=== PATIENT | female | born 1945 | race Caucasian/White ===

== ENCOUNTER → 2017-10-06 09:02 | Outpatient (CLI) | payer MEDICARE, OTHER, SELFPAY ==
--- NOTE | 2017-10-06 | DI.ECHO.S_ITS ---
[facility] +---------+ : : [address] : : : : [id number] : : : : Phone: [phone]+ Echocardiogram Report + + :Name: DARELL MENDOZA Study Date: 10/06/2017 Height: 67 in : :[facility] Weight: 224 lb : : Gender: Female BSA: 2.1 m2 : :: 1945 Age: 72 yrs BP: 126/66 mmHg: :Reason For Study: Palpitations : : Performed By: Amy Arias : :Referring: YU GUTIÉRREZ : + + Interpretation Summary The left ventricle is normal in size, wall thickness, and systolic function without any focal wall motion abnormalities. The ejection fraction is estimated to be 60-65%. Assessment of diastolic parameters indicates a relaxation abnormality of the left ventricle, consistent with normal filling pressures. Borderline right ventricular enlargement. The right ventricular systolic function is normal. The right ventricular systolic pressure is estimated at 28 mmHg assuming a right atrial pressure of 3 mm Hg. The left atrium is mildly dilated. The right atrium is mildly dilated. There is mild mitral regurgitation. There is mild aortic regurgitation. There is no other significant valvular heart disease. The aortic root is normal size. Procedure: A two-dimensional transthoracic echocardiogram with color flow and Doppler was performed. The study quality was technically adequate. There is no prior echocardiogram noted for this patient. The patient was in normal sinus rhythm during the exam. The patient had occasional PVCs during the exam. Left Ventricle: The left ventricle is normal in size, wall thickness, and systolic function without any focal wall motion abnormalities. The ejection fraction is estimated to be 60-65%. Assessment of diastolic parameters indicates a relaxation abnormality of the left ventricle, consistent with normal filling pressures. Right Ventricle: Borderline right ventricular enlargement. The right ventricular systolic function is normal. Atria: The left atrium is mildly dilated. The right atrium is mildly dilated. The interatrial septum is intact with no evidence for an atrial septal defect. Mitral Valve: The mitral valve is grossly normal. There is mild mitral regurgitation. Aortic Valve: The aortic valve is trileaflet. The aortic valve opens well. There is mild aortic regurgitation. Tricuspid Valve: The tricuspid valve is normal in structure and function. There is trace tricuspid regurgitation. The right ventricular systolic pressure is estimated at 28 mmHg assuming a right atrial pressure of 3 mm Hg. Pulmonic Valve: The pulmonic valve is not well seen, but is grossly normal. There is mild pulmonic regurgitation. There is no other significant valvular heart disease. Great Vessels: The aortic root is normal size. The ascending aorta is at the upper limits of normal in size. The IVC is of normal diameter and collapses greater than 50% with a sniff. This suggests a low right atrial pressure of 3 mm Hg. Pericardium/ Pleura There is no pericardial effusion. There is no pleural effusion. MMode/2D Measurements & Calculations LVIDd: 5.3 cm Ao root diam: 3.5 cm LVIDs: 3.3 cm Aortic Jxn: 2.8 cm FS: 38.9 % asc Aorta Diam: 3.6 cm IVSd: 0.88 cm Ao Arch Diam (Prox Trans): 3.0 cm LVPWd: 0.96 cm LV julien. diameter/BSA (cm/m^2): 2.5 LV sys. diameter/BSA (cm/m^2): 1.5 LA dimension: 4.4 cm RA long axis: 4.8 cm LA A2 area: 25.2 cm2 RA area: 19.2 cm2 LA A4 area: 22.2 cm2 RA vol: 64.9 ml LA length (vol): 5.7 cm RA : 30.6 ml/m2 LA vol: 83.1 ml IVC diam: 1.6 cm LA vol index: 39.2 ml/m2 RVDd major: 5.2 cm RVD1 (basal): 3.6 cm RVD2 (mid): 3.4 cm Doppler Measurements & Calculations Ao V2 max: 147.8 cm/sec AI P1/2t: 459.0 msec Ao V2 mean: 107.0 cm/sec AI dec slope: 247.5 cm/sec2 Ao max P.7 mmHg Ao mean P.0 mmHg Ao V2 VTI: 38.6 cm MV E max tiburcio: 70.4 cm/sec TR max tiburcio: 248.8 cm/sec MV A max tiburcio: 80.4 cm/sec TR max P.8 mmHg MV E/A: 0.88 PA V2 max: 87.6 cm/sec Med Peak E' Tiburcio: 5.1 cm/sec PA V2 mean: 59.5 cm/sec E/E' med: 13.9 PA mean P.6 mmHg Lat Peak E' Tiburcio: 6.6 cm/sec PA Accel Time: 0.13 sec E/E' lat: 10.6 E/e' average: 12.3 MV dec time: 0.28 sec MV P1/2t: 83.0 msec MV P1/2t max tiburcio: 71.0 cm/sec MVA(P1/2t): 2.7 cm2 Reading Physician:SPENCER
== END ==
PROVIDERS: Visit Provider Internal Medicine
DX: I08.0 Rheumatic disorders of both mitral and aortic valves (principal); R00.2 Palpitations
CPT/HCPCS: 93306

== ENCOUNTER → 2018-10-27 09:53 | Outpatient (CLI) | payer MEDICARE, OTHER, SELFPAY ==
[2018-10-27 11:02] LABS: Add Manual Diff / Slide Review NO; Basophils Absolute Auto 100 /uL (0-100); Basophils Percent Auto 1.3 % (0-2); Eosinophils Absolute Auto 100 /uL (0-450); Eosinophils Percent Auto 1.4 % (2-4); Hematocrit 43.4 % (36-46); Hemoglobin 14.2 g/dL (12.0-16.0); Lymphocytes Absolute Auto 1600 /uL (1100-4500); Lymphocytes Percent Auto 38.3 % (25-40); Mean Corpuscular HGB Conc 32.7 % (30-36); Mean Corpuscular Hemoglobin 26.5 PG (26-34); Mean Corpuscular Volume 81.1 fL (80-100); Monocytes Absolute Auto 400 /uL (0-900); Monocytes Percent Auto 9.1 % (3-14); Neutrophils Absolute Auto 2100 /uL (1500-7000); Neutrophils Percent Auto 49.9 % (50-75); Platelet Count 213 X10^3/uL (150-400); Red Blood Cell Count 5.35 X10^6/uL (4.0-5.2); Red Cell Distribution Width 16.8 % (11.6-14.8); White Blood Cell Count 4.2 X10^3/uL (4.5-11.0)
[2018-10-27 11:07] LABS: HEMOLYSIS < 15 (0-50); Iron 43 ug/dL (37-170)
[2018-10-27 11:12] LABS: Alanine Aminotransferase 20 IU/L (9-52); Albumin 4.2 g/dL (3.5-5.0); Albumin Globulin Ratio 1.4 (1.0-2.8); Alkaline Phosphatase 94 U/L (38-126); Aspartate Aminotransferase 26 IU/L (14-36); BUN Creatinine Ratio 28.3 (6-22); Bilirubin Total 0.5 mg/dL (0.2-1.3); Blood Urea Nitrogen 17 mg/dL (7-17); Calcium 9.3 mg/dL (8.4-10.2); Carbon Dioxide 26 mmol/L (22-32); Chloride 105 mmol/L (98-107); Cholesterol 279 mg/dL (140-199); Estimated Glomerular Filt Rate > 60.0 mL/min (>60); Gamma Glutamyl Transpeptidase 15 U/L (12-43); Glucose 118 mg/dL (80-110); HDL Cholesterol 83 mg/dL (40-60); HEMOLYSIS < 15 (0-50); LDL Cholesterol Calculated 178 mg/dL (<100); Sodium 140 mmol/L (137-145); Total Protein 7.2 g/dL (6.3-8.2); Triglycerides 92 mg/dL (35-150)
[2018-10-27 11:16] LABS: Hemoglobin A1C% w Est Avg Glu 6.6 % (4.0-6.0)
[2018-10-27 11:19] LABS: C-Reactive Protein Quant < 0.5 mg/dL (<1.0); Percent Iron Saturation 11 % (15-50); Total Iron Binding Capacity 399 ug/dL (265-497); Transferrin 334 mg/dL (206-381)
[2018-10-27 11:22] LABS: Vitamin D 25 Hydroxy (D3) 39.1 ng/mL (30.0-100.0)
[2018-10-27 11:24] LABS: Free T4, Direct Thyroxine 0.98 ng/dL (0.78-2.19); T4 Total Thyroxine 7.65 ug/dL (5.5-11.0); T7 (Free Thyroxine Index) 2.46 (1.65-3.89); Triiodothryronine T3 Uptake 32.1 % (23.5-40.5)
[2018-10-27 11:37] LABS: Thyroid Stimulating Hormone 0.76 uIU/mL (0.47-4.68)
[2018-10-27 11:53] LABS: Vitamin B12 698 pg/mL (239-931)
[2018-10-29 17:12] LABS: Triiodothyronine T3 Total 113 ng/dL (76-181)
[2018-10-29 19:26] LABS: Albumin 4.1 g/dL (3.8-4.8); Alpha 1 Globulin 0.2 g/dL (0.2-0.3); Alpha 2 Globulin 0.6 g/dL (0.5-0.9); Beta 1 Globulin 0.5 g/dL (0.4-0.6); Gamma Globulin 0.9 g/dL (0.8-1.7); Protein, Total 6.7 g/dL (6.1-8.1)
[2018-10-31 13:56] LABS: Homocysteine 10.2 umol/L (< 10.4)
== END ==
PROVIDERS: PCP Internal Medicine; Visit Provider Internal Medicine
DX: R53.83 Other fatigue (principal); E11.9 Type 2 diabetes mellitus without complications; D64.9 Anemia, unspecified; E78.2 Mixed hyperlipidemia; E53.8 Deficiency of other specified B group vitamins; E55.9 Vitamin D deficiency, unspecified
CPT/HCPCS: 36415; 80053; 80061; 82306; 82607; 82728; 82977; 83036; 83090; 83540; 83550; 84155; 84165; 84436; 84439; 84443; 84479; 84480; 85025; 86140

== ENCOUNTER → 2018-11-02 08:32 | Outpatient (CLI) | payer MEDICARE, OTHER, SELFPAY ==
--- NOTE | 2018-11-02 09:26 | DI.CT.S_ITS ---
PROCEDURE: CT ABDOMEN PELVIS W CON INDICATIONS: Pelvic mass on prev imaging TECHNIQUE: After the administration of oral and intravenous contrast, 5 mm thick sections acquired from the diaphragms to the symphysis. 5 mm thick coronal and sagittal reformats were performed. For radiation dose reduction, the following was used: automated exposure control, adjustment of mA and/or kV according to patient size. COMPARISON: [employer] [facility], [place], PELVIC COMPLETE, 12/10/2016, 10:26. [facility], CT, ABDOMEN/PELVIS WITH CONTRAST, 02/04/2013, 9:26. [facility], CT, ABDOMEN/PELVIS WITH CONTRAST, 03/19/2012, 8:44. FINDINGS: Image quality: Excellent. ABDOMEN: Lung bases: Lung bases are clear. Heart size is normal. Solid organs: Liver is normal in size and enhancement. Gallbladder appears normal. Biliary system is non-dilated. Pancreas enhances normally. Spleen is normal in size and enhancement. No adrenal nodules. Kidneys are normal in size and enhancement, without hydronephrosis. The there is a simple appearing water density exophytic 4 cm left renal cortical cyst. Peritoneum and bowel: Stomach, small bowel, and colon loops are normal in caliber and wall thickness. No free fluid or air. Nodes and vessels: No retroperitoneal or mesenteric adenopathy. Aorta and inferior vena cava are normal in caliber. Miscellaneous: No ventral hernias. PELVIS: Genitourinary: Bladder wall thickness is normal. Apparent prior hysterectomy. Miscellaneous: No inguinal hernias or adenopathy. Within the anterior midline of the upper pelvis located and axial level of the anterior superior iliac spines there is a rounded mass that is mildly heterogeneous in its enhancement, soft tissue in radiodensity and slightly hyperenhancing when compared to muscle, measuring up to 4.7 x 4.9 cm. Just below this area at the mid pelvis, anterior to the upper margin of the uterus, there is a soft tissue mass that had been previously identified and contained internal fat content with a prior radiodensity of -64 Hounsfield units and a current internal radiodensity of 51-52 Hounsfield units. Adjacent normal mesenteric fat measures approximately -101-102 Hounsfield units in this general region. Bones: No suspicious bony lesions. No vertebral body compression fractures. 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 The more superior mass is soft tissue in radiodensity, measuring up to 4.9 cm in dimension and rounded. Soft tissue sarcoma can produce such an appearance. Surgical consultation is recommended directed to this lesion. Within the pelvis slightly more inferiorly a previously identified mass that was fatty in internal radiodensity but complex 02/04/13 is again seen but now has become solid in internal radiodensity and has only slightly enlarged in size. The current dimensions are up to 3.7 cm oblique AP and 2.9 cm transverse. This structure may represent a previously present fatty mass that has undergone sarcomatous degeneration. Again, surgical consultation is recommended. No metastatic disease found. Dictated by: Arnulfo De Anda M.D. on 11/02/2018 at 17:12 Approved by: Arnulfo De Anda M.D. on 11/02/2018 at 17:20
== END ==
PROVIDERS: PCP Internal Medicine; Visit Provider Obstetrics & Gynecology
DX: R19.00 Intra-abdominal and pelvic swelling, mass and lump, unspecified site (principal)
CPT/HCPCS: 74177; Q9967

== ENCOUNTER → 2018-11-05 10:28 | Outpatient (CLI) | payer MEDICARE, OTHER, SELFPAY ==
[2018-11-05 12:17] LABS: Cancer Antigen 125 < 6 U/mL (0-35)
== END ==
PROVIDERS: PCP Internal Medicine; Visit Provider Internal Medicine
DX: R19.00 Intra-abdominal and pelvic swelling, mass and lump, unspecified site (principal); C56.9 Malignant neoplasm of unspecified ovary; C18.9 Malignant neoplasm of colon, unspecified
CPT/HCPCS: 36415; 82378; 86304

== ENCOUNTER 2018-12-31 09:00 | Outpatient (RCR) | payer MEDICARE, OTHER, SELFPAY ==
--- NOTE | 2018-12-22 17:47 | PT.OIE ---
Current Diagnoses Urge incontinence (12/17/18) Other female genital prolapse (12/17/18) Past Medical History (Last Updated 11/18/18 @ 15:51 by Grant Hall MD) Diabetes (Chronic) Diverticulosis (Acute) Fatty liver (Chronic) Fibromyalgia (Acute) Heart fibrillation (Acute) Melanoma (Resolved) Past Surgical History (Last Reviewed 11/18/18 @ 15:49 by Grant Hall MD) History of third molar tooth extraction Status post colonoscopy Status post surgery (12/10/16) Status post surgery (01/17/17) Status post tubal ligation Visit Care Team Role Provider Type Roland Narvaez MD Primary Care Provider Physician Specialty: Internal Medicine Address: [address] [place] [id number] Email: [email or web address] Lilliam Antunez MD Attending Provider Physician Specialty: DIRECTOR OF COMMUNITY EDUCATION Address: [address] [place] [address], [id number] Email: [email or web address] Physical Therapy Initial Evaluation PT-OP-A Visit Information Start: 12/17/18 09:04 Freq: Status: Active Protocol: Document 12/17/18 09:05 [facility] (Rec: 12/17/18 09:16 [facility] [id number]) Out-Patient Physical Therapy Visit Information Visit Information Visit Type Initial Evaluation Visit Start Time 09:00 Visit Stop Time 09:45 Total Visit Minutes 45 Visit Number 1 Number of NUCLEAR MEDICINE SPECIALIST Visits 0 Evaluation Information Evaluation Date 12/17/18 PT-OP-B Current Condition Start: 12/17/18 09:04 Freq: Status: Active Protocol: Document 12/17/18 09:05 [facility] (Rec: 12/17/18 09:16 [facility] [id number]) Current Condition History of Current Condition Onset Date 2014 Current Complaints urinary urgency and leakage History of Current Condition Has the urge to void frequently, when getting up from a sitting position to standing position, urge wasn't there while she was sitting but she will suddenly have a sudden urge to void and won't always make it. Night time voiding varies. Prior Treatments and Tests 2015 anterior/posterior repair surgery, 2017 started bleeding x 4 months so had 2 polyps removed from her uterus that were benign. Has a few tumors in abdomen now the bigggest one being 2 it is attached to the outside of the small intestine close to the middle. In 2011 was having pain in the lower right side of abdomen and a small mass was found so that is why the CT scan was repeated. She has a referral to see a surgeon in [place] for possible bowel resection. Has been on Vagifem since her surgery. Has type II diabetes but is able to control it. Treatment Goals Patient/Caregiver Goals to decrease urinary urge incontinence Current Functional Impairments (Reported) Functional Limitations- Recreation/ pt is limited in traveling Hobbies distance as she always feel like she needs to be near a restroom PT-OP-C Subjective Start: 12/22/18 17:21 Freq: Status: Active Protocol: Document 12/17/18 09:05 [facility] (Rec: 12/22/18 17:47 [facility] [id number]) Patient Questionnaires Pelvic Pain and Urgency/Frequency Patient Symptom Scale Pelvic Pain Score 11 PT-OP-I Pelvic Floor Start: 12/22/18 17:21 Freq: Status: Active Protocol: Document 12/17/18 09:05 [facility] (Rec: 12/22/18 17:47 [facility] [id number]) Pelvic Floor Assessment Urine Pelvic Floor Surgery Yes Urinary Symptoms Urge Sensation Other Urinary Symptoms bladder leakage 3-4 times per week Leakage Size Medium Leakage Cause Urge Leaks Per Day 3-4 per week Voiding Frequency 10 times per day Nocturia 2 Urine Pad Type Depends Pelvic Clock Pelvic Clock 12-3 Atrophy Pelvic Clock 3-6 Atrophy Pelvic Clock 6-9 Atrophy Pelvic Clock 9-12 Atrophy Contraction Ability Voluntary Contraction Weak Voluntary Relaxation Weak Manual Muscle Testing Left 2 Manual Muscle Testing Right 2 Manual Muscle Testing Anterior 2 Manual Muscle Testing Posterior 2 Muscle Endurance (Seconds) 4 PT-OP-M Strength Start: 12/22/18 17:21 Freq: Status: Active Protocol: Document 12/17/18 09:05 [facility] (Rec: 12/22/18 17:47 [facility] [id number]) Trunk Strength Trunk Manual Muscle Testing Testing Position Supine Core Stabilization poor transverse abdominal facilitation PT-OP-T Assessment and Plan Start: 12/22/18 17:21 Freq: Status: Active Protocol: Document 12/17/18 09:05 [facility] (Rec: 12/22/18 17:47 [facility] [id number]) Physical Therapy Assessment Rehab Potential Rehabilitation Potential Good Evaluation Complexity Number of Personal Factors/Comorbidities 0 Number of Body Systems Impaired 1-2 Clinical Presentation at Evaluation Stable Other Concerns Barriers to Rehabilitation tumors in abdomen and upcoming surgery to remove those Goals Three Impairment Decreased pelvic floor endurance at 4 seconds Jail Goal (LTG) Improve endurance of the pelvic floor to 10 secondhold time in supine LTG Duration 8 weeks Two Impairment pelvic floor weakness MMT 2/5 Jail Goal (LTG) Improve strength of the pelvic floor to 3/5 or better on MMT LTG Duration 8 weeks One Impairment urinary urgency and urge incontinence Short Term Goal (STG) aries is educated in urge deference technique and bladder retraining STG Duration 2-3 weeks Community Health Nursing Director Goal (LTG) Aries is able to delay voiding to every 2-3 hours during the day and is only waking 1 xm per night to void LTG Duration 8 weeks Assessment Summary Assessment Aries presents to physical therapy today with primary complaints of urgency and frequent voiding. She also experiences leakage with urgency or if she transfers from sitting to standing with a full bladder. She is also seeking treatment for removal of tumors in her abdomen that will be upcomming. With examination today she has very poor control of core strength both in her lower abdomen and pelvic floor. Her endurance of the pelvic floor is limited to approximately 4 seconds. She also has a great deal of back pain that may be contributing to her symptoms as it is labored from her to go from sitting to standing. She tends to bear down placing pressure on her bladder with transfers. Treatment will emphasize strengthening for the lower abdominals Physical Therapy Plan Frequency and Duration Frequency of Treatment 1x/Week Duration of Treatment 8 weeks Plan of Care Start Date 12/17/18 Plan of Care End Date 02/11/19 Therapeutic Interventions Therapeutic Interventions Home Exercise Program,Manual Therapy,Neuromuscular Re- education,Self-Care/Home Management,Therapeutic Exercises Modalities Biofeedback Next Visit Focus/Plan Next Note Type Treatment Note Next Visit Plan Begin EMG biofeedback for neruo muscular awareness and strengthening of the pelvic floor
--- NOTE | 2018-12-22 17:48 | PT.OPPOC ---
Current Diagnoses Urge incontinence (12/17/18) Other female genital prolapse (12/17/18) Visit Care Team Role Provider Type Roland Narvaez MD Primary Care Provider Physician Specialty: Internal Medicine Address: [address] [place] [address], [id number] Email: [email or web address] Lilliam Antunez MD Attending Provider Physician Specialty: GEOTECHNICAL ENGINEER Address: [address] [place] [address], [address] Email: [email or web address] Plan Of Care PT-OP-T Assessment and Plan Start: 12/22/18 17:21 Freq: Status: Active Protocol: Document 12/17/18 09:05 [facility] (Rec: 12/22/18 17:47 [facility] [id number]) Physical Therapy Assessment Rehab Potential Rehabilitation Potential Good Evaluation Complexity Number of Personal Factors/Comorbidities 0 Number of Body Systems Impaired 1-2 Clinical Presentation at Evaluation Stable Other Concerns Barriers to Rehabilitation tumors in abdomen and upcoming surgery to remove those Goals Three Impairment Decreased pelvic floor endurance at 4 seconds [facility] Goal (LTG) Improve endurance of the pelvic floor to 10 second hold time in supine LTG Duration 8 weeks Two Impairment pelvic floor weakness MMT 2/5 Nutrition Therapist Goal (LTG) Improve strength of the pelvic floor to 3/5 or better on MMT LTG Duration 8 weeks One Impairment urinary urgency and urge incontinence Short Term Goal (STG) Miranda is educated in urge deference technique and bladder retraining STG Duration 2-3 weeks Nutrition Therapist Goal (LTG) Miranda is able to delay voiding to every 2-3 hours during the day and is only waking 1 xm per night to void LTG Duration 8 weeks Assessment Summary Assessment Miranda presents to physical therapy today with primary complaints of urgency and frequent voiding. She also experiences leakage with urgency or if she transfers from sitting to standing with a full bladder. She is also seeking treatment for removal of tumors in her abdomen that will be upcomming. With examination today she has very poor control of core strength both in her lower abdomen and pelvic floor. Her endurance of the pelvic floor is limited to approximately 4 seconds. She also has a great deal of back pain that may be contributing to her symptoms as it is labored from her to go from sitting to standing. She tends to bear down placing pressure on her bladder with transfers. Treatment will emphasize strengthening for the lower abdominals Physical Therapy Plan Frequency and Duration Frequency of Treatment 1x/Week Duration of Treatment 8 weeks Plan of Care Start Date 12/17/18 Plan of Care End Date 02/11/19 Therapeutic Interventions Therapeutic Interventions Home Exercise Program,Manual Therapy,Neuromuscular Re- education,Self-Care/Home Management,Therapeutic Exercises Modalities Biofeedback Next Visit Focus/Plan Next Note Type Treatment Note Next Visit Plan Begin EMG biofeedback for neruo muscular awareness and strengthening of the pelvic floor Plan of Care Dates Plan of Care Start Date 12/17/18 Plan of Care End Date 02/11/19
--- NOTE | 2018-12-24 14:20 | PT.OTN ---
Current Diagnoses Urge incontinence (12/24/18) Other female genital prolapse (12/24/18) Physical Therapy Treatment Note PT-OP-A Visit Information Start: 12/17/18 09:04 Freq: Status: Active Protocol: Document 12/24/18 09:45 [facility] (Rec: 12/24/18 09:47 [facility] [id number]) Out-Patient Physical Therapy Visit Information Visit Information Visit Type Treatment Note Visit Start Time 09:45 Visit Stop Time 10:30 Total Visit Minutes 45 Visit Number 2 Number of BOX FEEDER Visits 0 PT-OP-B Current Condition Start: 12/17/18 09:04 Freq: Status: Active Protocol: Document 12/17/18 09:05 [facility] (Rec: 12/17/18 09:16 [facility] [id number]) Current Condition History of Current Condition Onset Date 2014 Current Complaints urinary urgency and leakage History of Current Condition Has the urge to void frequently, when getting up from a sitting position to standing position, urge wasn't there while she was sitting but she will suddenly have a sudden urge to void and won't always make it. Night time voiding varies. Prior Treatments and Tests 2014 anterior/posterior repair surgery, 2017 started bleeding x 4 months so had 2 polyps removed from her uterus that were benign. Has a few tumors in abdomen now the bigggest one being 2 it is attached to the outside of the small intestine close to the middle. In 2011 was having pain in the lower right side of abdomen and a small mass was found so that is why the CT scan was repeated. She has a referral to see a surgeon in [place] for possible bowel resection. Has been on Vagifem since her surgery. Has type II diabetes but is able to control it. Treatment Goals Patient/Caregiver Goals to decrease urinary urge incontinence Current Functional Impairments (Reported) Functional Limitations- Recreation/ pt is limited in traveling Hobbies distance as she always feel like she needs to be near a restroom PT-OP-C Subjective Start: 12/22/18 17:21 Freq: Status: Active Protocol: Document 12/24/18 09:45 [facility] (Rec: 12/24/18 09:47 [facility] [id number]) OP-PT Subjective Patient Comments Patient Comments pt reports her hamstrings really cramped up with her adductor squeeze exercise PT-OP-I Pelvic Floor Start: 12/22/18 17:21 Freq: Status: Active Protocol: Document 12/17/18 09:05 [facility] (Rec: 12/22/18 17:47 [facility] [id number]) Pelvic Floor Assessment Urine Pelvic Floor Surgery Yes Urinary Symptoms Urge Sensation Other Urinary Symptoms bladder leakage 3-4 times per week Leakage Size Medium Leakage Cause Urge Leaks Per Day 3-4 per week Voiding Frequency 10 times per day Nocturia 2 Urine Pad Type Depends Pelvic Clock Pelvic Clock 12-3 Atrophy Pelvic Clock 3-6 Atrophy Pelvic Clock 6-9 Atrophy Pelvic Clock 9-12 Atrophy Contraction Ability Voluntary Contraction Weak Voluntary Relaxation Weak Manual Muscle Testing Left 2 Manual Muscle Testing Right 2 Manual Muscle Testing Anterior 2 Manual Muscle Testing Posterior 2 Muscle Endurance (Seconds) 4 PT-OP-M Strength Start: 12/22/18 17:21 Freq: Status: Active Protocol: Document 12/17/18 09:05 [facility] (Rec: 12/22/18 17:47 [facility] [id number]) Trunk Strength Trunk Manual Muscle Testing Testing Position Supine Core Stabilization poor transverse abdominal facilitation PT-OP-Q Treatments Start: 12/22/18 17:21 Freq: Status: Active Protocol: Document 12/24/18 09:45 [facility] (Rec: 12/24/18 14:20 [facility] [id number]) Therapeutic Exercises Supine Exercises 5 Supine Exercise Name quick flicks Reps/Minutes x 10 reps 2 sec on 2 sec off 4 Supine Exercise Name pelvic floor long holds Reps/Minutes 10 second holds with 10 second relaxation Comments for home pt instructed in 5 second hold time with 10 second relaxation 3 Supine Exercise Name balls squeeze with pelvic floor activation Side bilateral Reps/Minutes hold x 5 seconds, 10 reps 2 Supine Exercise Name single knee to chest Side bilateral Reps/Minutes hold 1 min each 1 Supine Exercise Name hamstring stretch Side bilateral Reps/Minutes hold 1-2 minutes Self-Care/Home Management Treatment Education Other Education Miranda was instructed in the urge deference technique for bladder retraining, home exercise handouts given PT-OP-T Assessment and Plan Start: 12/22/18 17:21 Freq: Status: Active Protocol: Document 12/24/18 09:45 [facility] (Rec: 12/24/18 14:20 [facility] [id number]) Physical Therapy Assessment Assessment Summary Assessment Miranda tolerated EMG biofeedback well today for pelvic neuro re-education. She realized how she is very limited with her endurance of the pelvic floor. I started her with just 5 second hold time and 10 second relaxation 2 xms per day. She notes that most of her urgency comes after she has been sitting for long periods of time and then goes to stand. I also added in hamstring stretching as she had mentioned she was getting hamstring cramping with ball squeeze ex. Physical Therapy Plan Frequency and Duration Frequency of Treatment 1x/Week Duration of Treatment 8 weeks Plan of Care Start Date 12/17/18 Plan of Care End Date 02/11/19 Therapeutic Interventions Therapeutic Interventions Home Exercise Program,Manual Therapy,Neuromuscular Re- education,Self-Care/Home Management,Therapeutic Exercises Modalities Biofeedback Next Visit Focus/Plan Next Note Type Treatment Note Next Visit Plan review urge deference technique and pelvic floor home program, progress pelvic floor strengthening as tolerated.
--- NOTE | 2018-12-31 10:40 | PT.OTN ---
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 Night time voiding varies. Prior Treatments and Tests 2014 anterior/posterior repair surgery, 2017 started bleeding x 4 months so had 2 polyps removed from her uterus that were benign. Has a few tumors in abdomen now the bigggest one being 2 it is attached to the outside of the small intestine close to the middle. In 2011 was having pain in the lower right side of abdomen and a small mass was found so that is why the CT scan was repeated. She has a referral to see a surgeon in [place] for possible bowel resection. Has been on Vagifem since her surgery. Has type II diabetes but is able to control it. Treatment Goals Patient/Caregiver Goals to decrease urinary urge incontinence Current Functional Impairments (Reported) Functional Limitations- Recreation/ pt is limited in traveling Hobbies distance as she always feel like she needs to be near a restroom PT-OP-C Subjective Start: 12/22/18 17:21 Freq: Status: Active Protocol: Document 12/31/18 10:36 [facility] (Rec: 12/31/18 10:40 [facility] [email or web address]) OP-PT Subjective Patient Comments Patient Comments pt reports she has slept through the night the past 4 nights. She is having a little bit of difficulty coordinating her breath with pelvic floor facilitation Patient Reported Progress Improving PT-OP-I Pelvic Floor Start: 12/22/18 17:21 Freq: Status: Active Protocol: Document 12/17/18 09:05 [facility] (Rec: 12/22/18 17:47 [facility] [id number]) Pelvic Floor Assessment Urine Pelvic Floor Surgery Yes Urinary Symptoms Urge Sensation Other Urinary Symptoms bladder leakage 3-4 times per week Leakage Size Medium Leakage Cause Urge Leaks Per Day 3-4 per week Voiding Frequency 10 times per day Nocturia 2 Urine Pad Type Depends Pelvic Clock Pelvic Clock 12-3 Atrophy Pelvic Clock 3-6 Atrophy Pelvic Clock 6-9 Atrophy Pelvic Clock 9-12 Atrophy Contraction Ability Voluntary Contraction Weak Voluntary Relaxation Weak Manual Muscle Testing Left 2 Manual Muscle Testing Right 2 Manual Muscle Testing Anterior 2 Manual Muscle Testing Posterior 2 Muscle Endurance (Seconds) 4 PT-OP-M Strength Start: 12/22/18 17:21 Freq: Status: Active Protocol: Document 12/17/18 09:05 [facility] (Rec: 12/22/18 17:47 AM[facility] [id number]) Trunk Strength Trunk Manual Muscle Testing Testing Position Supine Core Stabilization poor transverse abdominal facilitation PT-OP-Q Treatments Start: 12/22/18 17:21 Freq: Status: Active Protocol: Document 12/31/18 10:36 AM[facility] (Rec: 12/31/18 10:40 [facility] [email or web address]) Therapeutic Exercises Supine Exercises 7 Supine Exercise Name diaphragmatic breathing 6 Supine Exercise Name piriformis stretch Reps/Minutes hold 1-2 min 5 Supine Exercise Name quick flicks Reps/Minutes x 10 reps 2 sec on 2 sec off 4 Supine Exercise Name pelvic floor long holds Reps/Minutes 10 second holds with 10 second relaxation Comments for home pt instructed in 5 second hold time with 10 second relaxation 3 Supine Exercise Name balls squeeze with pelvic floor activation Side bilateral Reps/Minutes hold x 5 seconds, 10 reps 2 Supine Exercise Name single knee to chest Side bilateral Reps/Minutes hold 1 min each 1 Supine Exercise Name hamstring stretch Side bilateral Reps/Minutes hold 1-2 minutes PT-OP-T Assessment and Plan Start: 12/22/18 17:21 Freq: Status: Active Protocol: Document 12/31/18 10:36 [facility] (Rec: 12/31/18 10:40 [facility] [email or web address]) Physical Therapy Assessment Assessment Summary Assessment added in diaphragmatic breathing today and worked with the breath with pelvic floor facilitation. May try sidelying next visit as this is difficult in supine for Miranda Physical Therapy Plan Frequency and Duration Frequency of Treatment 1x/Week Duration of Treatment 8 weeks Plan of Care Start Date 12/17/18 Plan of Care End Date 02/11/19 Next Visit Focus/Plan Next Note Type Treatment Note Next Visit Plan begin sidelying and or quadruped for diaphragmatic breath and TA/pelvic floor facilitation
== END 2019-01-01 12:55 ==
LOC: PHYS 09:00
PROVIDERS: PCP Internal Medicine; Visit Provider Obstetrics & Gynecology
DX: N81.89 Other female genital prolapse (principal); N39.41 Urge incontinence
CPT/HCPCS: 97110; 97161; 97535

== ENCOUNTER → 2021-12-21 11:31 | Outpatient (CLI) | payer MEDICARE, OTHER, SELFPAY ==
[2021-12-22 04:08] LABS: Candida species Negative (Negative); Gardnerella vaginalis Negative (Negative); Trichomoas vaginalis Negative (Negative)
== END ==
PROVIDERS: PCP Family Medicine; Visit Provider Obstetrics & Gynecology
DX: N89.8 Other specified noninflammatory disorders of vagina (principal)
CPT/HCPCS: 87480; 87510; 87660

== ENCOUNTER → 2022-05-07 10:50 | Outpatient (CLI) | payer MEDICARE, OTHER, SELFPAY | PROVIDERS: PCP Family Medicine; Visit Provider Family Medicine | DX: T81.89XA Other complications of procedures, not elsewhere classified, initial encounter (principal) | CPT/HCPCS: 87070; 87075; 87205 ==

== ENCOUNTER → 2022-08-01 07:57 | Outpatient (CLI) | payer MEDICARE, OTHER, SELFPAY ==
[2022-08-01 09:09] LABS: Add Manual Diff / Slide Review NO; Basophils Absolute Auto 100 /uL (0-100); Basophils Percent Auto 1.5 % (0-2); Eosinophils Absolute Auto 100 /uL (0-450); Eosinophils Percent Auto 2.2 % (2-4); Hematocrit 44.3 % (36-46); Hemoglobin 14.9 g/dL (12.0-16.0); Lymphocytes Absolute Auto 1500 /uL (1100-4500); Lymphocytes Percent Auto 35.6 % (25-40); Mean Corpuscular HGB Conc 33.6 % (30-36); Mean Corpuscular Hemoglobin 28.6 PG (26-34); Mean Corpuscular Volume 85.1 fL (80-100); Monocytes Absolute Auto 400 /uL (0-900); Monocytes Percent Auto 10.7 % (3-14); Neutrophils Absolute Auto 2100 /uL (1500-7000); Platelet Count 191 X10^3/uL (150-400); Red Cell Distribution Width 14.7 % (11.6-14.8); White Blood Cell Count 4.1 X10^3/uL (4.5-11.0)
[2022-08-01 09:36] LABS: Alanine Aminotransferase 21 IU/L (<35); Albumin 4.3 g/dL (3.5-5.0); Albumin Globulin Ratio 1.7 (1.0-2.8); Alkaline Phosphatase 105 U/L (38-126); Aspartate Aminotransferase 26 IU/L (14-36); BUN Creatinine Ratio 36.5 (6-22); Bilirubin Total 0.6 mg/dL (0.2-1.3); Blood Urea Nitrogen 23 mg/dL (7-17); Calcium 9.3 mg/dL (8.4-10.2); Carbon Dioxide 30 mmol/L (22-32); Chloride 101 mmol/L (98-107); Cholesterol 269 mg/dL (140-199); Estimated Glomerular Filt Rate > 60 mL/min (>60); Globulin 2.6 g/dL (1.7-4.1); Glucose 122 mg/dL (80-110); HDL Cholesterol 82 mg/dL (40-60); HEMOLYSIS < 15 (0-50); LDL Cholesterol Calculated 167 mg/dL (<100); Potassium 4.2 mmol/L (3.4-5.1); Sodium 138 mmol/L (137-145); Total Protein 6.9 g/dL (6.3-8.2); Triglycerides 102 mg/dL (35-150)
[2022-08-01 09:48] LABS: Vitamin D 25 Hydroxy (D3) 96.8 ng/mL (30.0-100.0)
[2022-08-01 10:02] LABS: TSH w/ Reflex to FT4 0.58 uIU/mL (0.47-4.68)
[2022-08-02 12:30] LABS: x Labcorp Estim. Avg Glu (eAG) 146 mg/dL (.); x Labcorp Hemoglobin A1c 6.7 % (4.8-5.6)
== END ==
PROVIDERS: PCP Family Medicine; Referring Provider Family Medicine; Visit Provider Family Medicine
DX: E55.9 Vitamin D deficiency, unspecified; E11.9 Type 2 diabetes mellitus without complications
CPT/HCPCS: 36415; 80053; 80061; 82306; 83036; 84443; 85025

== ENCOUNTER → 2022-08-08 09:43 | Outpatient (CLI) | payer MEDICARE, OTHER, SELFPAY ==
--- NOTE | 2022-08-08 09:45 | DI.RAD.S_ITS ---
PROCEDURE: XR CERVICAL SPINE 2V OR 3V INDICATIONS: pain TECHNIQUE: 3 view(s) of the cervical spine were acquired. COMPARISON: None. FINDINGS: Bones: No fractures or dislocations to the C7-T1 level. The lateral masses of C1 appear intact on the odontoid view. No suspicious bony lesions. Multilevel degenerative changes are present including moderate disc space narrowing at C5-6. Multilevel uncovertebral hypertrophy are present. Soft tissues: No prevertebral soft tissue swelling. IMPRESSION: Degenerative changes most severe at C5-6. Dictated by: Tita Avery M.D. on 08/08/2022 at 16:37 Approved by: Tita Avery M.D. on 08/08/2022 at 16:37
== END ==
PROVIDERS: PCP Family Medicine; Referring Provider Family Medicine; Visit Provider Family Medicine
DX: M54.2 Cervicalgia (principal)
CPT/HCPCS: 72040

== ENCOUNTER → 2024-12-01 11:32 | Outpatient (CLI) | payer MEDICARE, OTHER, SELFPAY | PROVIDERS: PCP Family Medicine; Visit Provider Obstetrics & Gynecology | DX: R32 Unspecified urinary incontinence (principal) | CPT/HCPCS: 87086 ==

== ENCOUNTER → 2025-02-10 07:55 | Outpatient (CLI) | payer MEDICARE, OTHER, SELFPAY ==
[2025-02-10 08:30] LABS: Add Manual Diff / Slide Review NO; Hematocrit 47.3 % (36-46); Hemoglobin 16.1 g/dL (12.0-16.0); Lymphocytes Absolute Auto 1300 /uL (1100-4500); Mean Corpuscular HGB Conc 34.0 % (30-36); Mean Corpuscular Hemoglobin 29.6 PG (26-34); Mean Corpuscular Volume 87.1 fL (80-100); Platelet Count 213 X10^3/uL (150-400)
[2025-02-10 08:51] LABS: Alanine Aminotransferase 19 IU/L (<35); Albumin 4.7 g/dL (3.5-5.0); Albumin Globulin Ratio 1.8 (1.0-2.8); Alkaline Phosphatase 82 U/L (38-126); Blood Urea Nitrogen 17 mg/dL (7-17); Calcium 9.8 mg/dL (8.4-10.2); Carbon Dioxide 26 mmol/L (22-32); Chloride 104 mmol/L (98-107); Cholesterol 301 mg/dL (140-199); Estimated Glomerular Filt Rate > 60 mL/min (>60); Globulin 2.6 g/dL (1.7-4.1); Glucose 146 mg/dL (70-99); HDL Cholesterol 99 mg/dL (40-60); HEMOLYSIS < 15 (0-50); Potassium 4.3 mmol/L (3.4-5.1); Sodium 137 mmol/L (137-145); Total Protein 7.3 g/dL (6.3-8.2); Triglycerides 123 mg/dL (35-150)
[2025-02-10 08:52] LABS: Hemoglobin A1C% w Est Avg Glu 6.7 % (4.0-6.0)
[2025-02-10 09:05] LABS: Free T3, Triiodothyronine Free 3.67 pg/mL (2.77-5.27)
[2025-02-10 09:19] LABS: TSH w/ Reflex to FT4 1.32 uIU/mL (0.47-4.68)
[2025-02-11 05:10] LABS: CRP, High Sensitivity 2.21 mg/L (0.00-3.00)
== END ==
PROVIDERS: PCP Family Medicine; Referring Provider Family Medicine; Visit Provider Family Medicine
DX: E78.5 Hyperlipidemia, unspecified (principal); E11.9 Type 2 diabetes mellitus without complications; E88.810 Metabolic syndrome; E66.9 Obesity, unspecified; R76.89 Other specified abnormal immunological findings in serum; E03.9 Hypothyroidism, unspecified
CPT/HCPCS: 36415; 80053; 80061; 83036; 83525; 84443; 84481; 85025; 86140; 86617

== ENCOUNTER → 2025-03-01 07:59 | Outpatient (CLI) | payer MEDICARE, OTHER, SELFPAY ==
--- NOTE | 2025-03-01 08:02 | DI.CT.S_ITS ---
PROCEDURE: CT HEAD/BRAIN WO CON INDICATIONS: R/o mass c/w metastatic melanoma TECHNIQUE: Noncontrast 4.5 mm thick angled axial sections acquired from the foramen magnum to the vertex, with coronal and sagittal reformats. For radiation dose reduction, the following was used: automated exposure control, adjustment of mA and/or kV according to patient size. COMPARISON: None. FINDINGS: Image quality: Diagnostic. CSF spaces: Basal cisterns are patent. No extra-axial fluid collections. The ventricles are symmetric in size and shape. Brain: No intracranial bleeds or mass effect. There is cerebral volume loss, with resultant ventricular and sulcal prominence. There are periventricular and deep white matter chronic small vessel ischemic changes. There is intracranial internal carotid artery atherosclerosis. Skull and face: Calvarium and visualized facial bones appear intact, without suspicious lesions. Sinuses: Visualized sinuses and mastoids are clear. IMPRESSION: No acute intracranial pathology. If there is continued clinical concern for metastatic disease consider MRI of the brain with and without contrast which has higher sensitivity for metastatic disease. Dictated by: Any Ruiz MD, PhD on 03/01/2025 at 11:38 Approved by: Any Ruiz MD, PhD on 03/01/2025 at 11:40
--- NOTE | 2025-03-01 08:02 | DI.CT.S_ITS ---
PROCEDURE: CT CHEST ABD PEL W CON INDICATIONS: R/o mass c/w metastatic melanoma TECHNIQUE: After the administration of intravenous contrast, 5 mm thick sections acquired from the lung apices to the symphysis. 5 mm coronal and sagittal reformats were performed, with additional 7 mm MIP reformats through the lungs. For radiation dose reduction, the following was used: automated exposure control, adjustment of mA and/or kV according to patient size. COMPARISON: [facility], CT, CT CHEST ABDOMEN PELVIS WITH CONTRAST, 05/16/2022, 10:23. FINDINGS: Image quality: Excellent. CHEST: Lower Neck: No enlarged lymph nodes. Thyroid: 1 cm hypodense nodule is seen involving left thyroid lobe and series 4, image 21. Axillae: No enlarged lymph nodes. Chest Wall: Unremarkable. Lungs and Pleura: No pneumothorax or pleural effusions. Scattered atelectasis in periphery of bilateral lower lung david are seen. Previously described 5 mm nodular density along right major fissure remains unchanged and likely represent benign perifissural lymph node series 2, image 196. Likely intra fissural lymph no is also noted in more lateral aspect of major fissure measures 4 mm in size also unchanged series 2, image 201. No consolidation or suspicious nodules.. Heart: Heart size is normal. No pericardial effusion. Thoracic Vessels: The aorta and pulmonary arteries demonstrate normal size. Mediastinum and Nat: No enlarged lymph nodes. Esophagus: No wall thickening. No significant hiatal hernia. ABDOMEN: Liver: No solid mass. Gallbladder: Faint radiodensity in dependent portion of gallbladder lumen is seen. No gallbladder wall thickening. Biliary ducts: No biliary dilation. Pancreas: No ductal dilation. Spleen: Size is within normal limits. Adrenal Glands: No adrenal nodules. Kidneys and Ureters: No hydronephrosis. No solid mass. No complex renal cystic lesion which requires follow up. Nonspecific mild bilateral perinephric fat stranding is seen. Bilateral simple appearing renal cysts are noted. Stomach and Bowel: There is no bowel obstruction or abnormal bowel wall thickening. Moderate fecal stasis in the colon is seen. Sigmoid diverticulosis without CT evidence of acute diverticulitis. No abscess collection. Peritoneum: No abnormal intraperitoneal fluid. No free air. Ventral Wall: Small umbilical hernia containing fat only. Abdominal Nodes: No retroperitoneal or mesenteric adenopathy by size criteria. Vessels: Aorta and inferior vena cava are normal in size. PELVIS: Pelvic Organs: Bulky appearing uterus is again seen and unchanged. Bladder: No bladder wall thickening, accounting for underdistention. Pelvic Nodes: No enlarged lymph nodes. Miscellaneous: No inguinal hernias are seen. Bones: No aggressive osseous abnormality. IMPRESSION: 1. Stable sub cm nodules along right major fissure likely represent intra fissural lymph nodes. No suspicious pulmonary nodules are seen. 2. 1 cm hypodense nodule in left thyroid lobe new since prior study, ultrasound thyroid gland follow-up is recommended. 3. No abnormally enlarged lymph nodes are seen in chest, abdomen or pelvis. 4. No evidence of metastatic disease is seen in abdomen or pelvis. 5. Suggestion of tiny gallstone. No CT evidence of acute cholecystitis. Dictated by: Davie Good M.D. on 03/01/2025 at 16:42 Approved by: Davie Good M.D. on 03/01/2025 at 17:18
== END ==
LOC: CT 08:00
PROVIDERS: PCP Family Medicine; Referring Provider Family Medicine; Visit Provider Family Medicine
DX: C43.9 Malignant melanoma of skin, unspecified (principal); R93.3 Abnormal findings on diagnostic imaging of other parts of digestive tract; R41.89 Other symptoms and signs involving cognitive functions and awareness; I65.29 Occlusion and stenosis of unspecified carotid artery; E04.1 Nontoxic single thyroid nodule; N28.1 Cyst of kidney, acquired; K57.30 Diverticulosis of large intestine without perforation or abscess without bleeding; K42.9 Umbilical hernia without obstruction or gangrene
CPT/HCPCS: 70450; 71260; 74177; Q9967

== ENCOUNTER → 2025-03-23 14:05 | Outpatient (CLI) | payer MEDICARE, OTHER, SELFPAY ==
--- NOTE | 2025-03-23 14:07 | DI.US.S_ITS ---
PROCEDURE: US THYROID INDICATIONS: thyroid nodule seen on CT TECHNIQUE: Real-time scanning was performed of the thyroid gland, with image documentation. COMPARISON: Located Within [facility], CT, CT CHEST ABD PEL W CON, 03/01/2025, 9:23. FINDINGS: Thyroid: Right lobe measures 4.6 x 1.8 cm. Left lobe measures 4.5 x 1.7 x 1.6 cm. Isthmus is 0.5 cm thick. Echotexture is homogeneous. Nodule number: 1 Location: Left inferior Size: 1.1 x 0.9 x 1.1 cm. Composition: Solid Echogenicity: Hypoechoic Shape: wider than tall. Margins: Smooth Echogenic foci: Macro calcifications Total points: 5 ACR TI-RADS category: 4 IMPRESSION: Lesion is considered category 4. Secondary to size, annual interval follow-up is recommended. ACR TI-RADS definitions and recommendations: TI-RADS 1 (benign): 0 points. FNA not needed. TI-RADS 2 (not suspicious): 2 points. FNA not needed. TI-RADS 3: 3 points. * FNA if 2.5 cm or larger, follow up if 1.5 cm or larger (at 1, 3, and 5 years). TI-RADS 4: 4-6 points. * FNA if 1.5 cm or larger, follow up if 1 cm or larger (at 1, 2, 3, and 5 years). TI-RADS 5: 7 points or more. * FNA if 1 cm or larger, follow up if 0.5 cm or larger (every year for 5 years). Dictated by: Tita Avery M.D. on 03/24/2025 at 1:46 Approved by: Tita Avery M.D. on 03/24/2025 at 1:48
== END ==
PROVIDERS: PCP Family Medicine; Referring Provider Family Medicine; Visit Provider Family Medicine
DX: E04.1 Nontoxic single thyroid nodule (principal)
CPT/HCPCS: 76536